=== PATIENT | male | born 1995 | race Caucasian/White ===

== ENCOUNTER 2017-01-19 21:08 | Emergency (ER) | payer SELFPAY ==
[2017-01-19 21:18] VITALS: BP 124/89
--- NOTE | 2017-01-19 21:18 | EDM.PDOC ---
ED HPI GENERAL MEDICAL PROBLEM - General Chief Complaint: General Stated Complaint: TOOTH PAIN Time Seen by Provider: 01/19/17 21:15 Source of Information: Reports: Patient History Limitations: Reports: No limitations - History of Present Illness INITIAL COMMENTS - FREE TEXT/NARRATIVE: History of present illness: [21-year-old male comes in complaining of acute dental pain. Patient indicates he thought he had a root canal but ignores it was never a crown and he is having debilitating pain from the left lower molar in the approximate 18/19 region.] Review of systems: As per history of present illness and below otherwise all systems reviewed and negative. Past medical history: As per history of present illness and as reviewed below otherwise noncontributory. Surgical history: As per history of present illness and as reviewed below otherwise noncontributory. Social history: No reported history of drug or alcohol abuse. Family history: As per history of present illness and as reviewed below otherwise noncontributory. Physical exam: HEENT: Atraumatic, normocephalic, pupils reactive, negative for conjunctival pallor or scleral icterus, mucous membranes moist, throat clear, neck supple, nontender, trachea midline. Lungs: Clear to auscultation, breath sounds equal bilaterally, chest nontender. Heart: S1S2, regular, negative for clicks, rubs, or JVD. Abdomen: Soft, nondistended, nontender. Negative for masses or hepatosplenomegaly. Negative for costovertebral tenderness. Pelvis: Stable nontender. Genitourinary: Deferred. Rectal: Deferred. Extremities: Atraumatic, negative for cords or calf pain. Neurovascular unremarkable. Neuro: Awake, alert, oriented. Cranial nerves II through XII unremarkable. Cerebellum unremarkable. Motor and sensory unremarkable throughout. Exam nonfocal. Patient appears to be in some amount of distress. There is no swelling of the jaw and patient is able to open mouth wide enough to see a back molar primarily absent and crumbled with what could have been a filling at one point but no sign of pulpectomy, canal filling and/or post or post-core buildup. In light of the current situation with the tooth it is doubtful that it had been a root canal but rather a significant orthodoxy that the patient confused for a repeat now. The patient might have been instructed he would need one in the future and/or was getting repair work in just short of a root canal. Diagnostics: [] Therapeutics: [Toradol 60 mg IM, dental balls] Impression: [Dental caries with significant distraction of the dense and] Plan: [Dental balls, antibiotics, preoperative pain medicine followup with dentist] Definitive disposition and diagnosis as appropriate pending reevaluation and review of above. - Related Data Allergies Allergy/AdvReac Type Severity Reaction Status Date / Time aspirin Allergy almost Verified 09/02/16 05:22 make him ? Home Meds: Home Meds Amoxicillin/Potassium Clav [Augmentin 875-125 Tablet] 1 each PO BID #20 tablet 01/19/17 [Rx] Past Medical History - Past Health History Medical/Surgical History: Denies Medical/Surgical History HEENT History: Reports: None Cardiovascular History: Reports: None Respiratory History: Reports: None Gastrointestinal History: Reports: None Genitourinary History: Reports: None Musculoskeletal History: Reports: None Neurological History: Reports: None Psychiatric History: Reports: None Endocrine/Metabolic History: Reports: None Hematologic History: Reports: Other (see below) 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 Dermatologic History: Reports: None - Infectious Disease History Infectious Disease History: Reports: None - Past Surgical History HEENT Surgical History: Reports: None Social & Family History - Family History Family Medical History: Noncontributory - Tobacco Use Smoking Status *Q: Current Every Day Smoker Years of Tobacco use: 7 Packs/Tins Daily: 0.5 Used Tobacco, but Quit: No Second Hand Smoke Exposure: Yes - Caffeine Use Caffeine Use: Reports: Soda - Alcohol Use Days Per Week of Alcohol Use: 0 - Recreational Drug Use Recreational Drug Use: No Drug Use in Last 12 Months: Yes Recreational Drug Type: Reports: Methamphetamine Recreational Drug Use Frequency: Weekly Recreational Drug Last Use: marijauna ED ROS GENERAL - Review of Systems Review Of Systems: See Below (See history of present illness) ED EXAM, GENERAL - Physical Exam Exam: See Below (The history of present illness) Course - Vital Signs Last Recorded V/S: Last Vital Signs Temp 36.4 C 01/19/17 21:11 Pulse 105 H 01/19/17 21:11 Resp 19 01/19/17 21:11 BP 124/89 01/19/17 21:11 Pulse Ox 99 01/19/17 21:11 - Orders/Labs/Meds Meds: Medications Discontinued Medications Generic Name Dose Route Start Last Admin Trade Name Malena PRN Reason Stop Dose Admin Benzocaine 2 each 01/19/17 21:27 Hurricaine One 20% MUCMEM 01/19/17 21:28 ONETIME ONE Ketorolac Tromethamine 60 mg 01/19/17 21:27 Toradol IM 01/19/17 21:28 ONETIME ONE Lidocaine HCl 15 ml 01/19/17 21:27 Xylocaine 2% Viscous PO 01/19/17 21:28 ONETIME ONE Departure - Departure Time of Disposition: 21:30 Disposition: Home, Self-Care 01 Condition: good Clinical Impression: Dental abscess Prescriptions: Amoxicillin/Potassium Clav [Augmentin 875-125 Tablet] 1 each PO BID #20 tablet Forms: ED Department Discharge Additional Instructions: The following information is given to patients seen in the emergency department who are being discharged to home. This information is to outline your options for follow-up care. We provide all patients seen in our emergency department with a follow-up referral. The need for follow-up, as well as the timing and circumstances, are variable depending upon the specifics of your emergency department visit. If you don't have a primary care physician on staff, we will provide you with a referral. We always advise you to contact your personal physician following an emergency department visit to inform them of the circumstance of the visit and for follow-up with them and/or the need for any referrals to a consulting specialist. The emergency department will also refer you to a specialist when appropriate. This referral assures that you have the opportunity for follow-up care with a specialist. All of these measure are taken in an effort to provide you with optimal care, which includes your follow-up. Under all circumstances we always encourage you to contact your private physician who remains a resource for coordinating your care. When calling for follow-up care, please make the office aware that this follow-up is from your recent emergency room visit. If for any reason you are refused follow-up, please contact the [facility] Emergency Department at and asked to speak to the emergency department charge nurse. Take medication as directed Attempt to get into a dentist [place] Return to ED as needed as discussed
[2017-01-19] MEDS ORDERED: Lidocaine 2% Viscous Solution 15 ML Cup PO ONE (21:27)
[2017-01-19] MEDS ORDERED: Ketorolac 60 MG/2 ML SDV IM ONE (21:27)
[2017-01-19] MEDS ORDERED: Benzocaine 20% Topical Spray UD MUCMEM ONE (21:27)
== END 2017-01-19 22:08 | disposition home or self-care (01) ==
LOC: MW.ED 21:08
DX: K04.7 Periapical abscess without sinus (principal); F17.210 Nicotine dependence, cigarettes, uncomplicated; Z88.8 Allergy status to other drugs, medicaments and biological substances
CPT/HCPCS: 96372; 99282; A9270; J1885; 99283

== ENCOUNTER 2017-09-02 20:58 | Emergency (ER) | payer SELFPAY ==
[2017-09-02 21:33] VITALS: BP 134/83
[2017-09-02] MEDS ORDERED: Diphtheria,Pertussis(Acell),Tetanus Vaccine 0.5 ML Syringe IM ONE (21:48)
--- NOTE | 2017-09-02 21:51 | EDM.PDOC ---
ED HPI GENERAL MEDICAL PROBLEM - General Chief Complaint: Skin Complaint Stated Complaint: ABCESS RT ARM Time Seen by Provider: 09/02/17 21:42 - History of Present Illness INITIAL COMMENTS - FREE TEXT/NARRATIVE: HISTORY AND PHYSICAL: History of present illness: The patient is a 21-year-old male with no stated medical problems who has a known history of IV meth use and used several days ago in his left forearm and believes he might have missed the vein and immediately a small blistery like area surface on the skin. Since that time there has been a circular dime-sized area of swelling and rubbery-like texture has been there and he is concerned because he's never had this before. He has no forearm swelling no systemic complaints of fever chills chest pain or shortness of breath and no neurosensory changes or weakness in his distal us or hand. He is right-hand dominant. He is unsure of his last tetanus shot Review of systems: As per history of present illness and below otherwise all systems reviewed and negative. Past medical history: As per history of present illness and as reviewed below otherwise noncontributory. Surgical history: As per history of present illness and as reviewed below otherwise noncontributory. Social history: No reported history of drug or alcohol abuse. Family history: As per history of present illness and as reviewed below otherwise noncontributory. Physical exam: Gen.: Well-developed well-nourished man who is nontoxic and vital signs of note by me HEENT: Atraumatic, normocephalic, negative for conjunctival pallor or scleral icterus, mucous membranes moist, throat clear, neck supple, nontender, trachea midline. Lungs: Clear to auscultation, breath sounds equal bilaterally, chest nontender. Heart: S1S2, regular rate and rhythm no overt murmurs Abdomen: Soft, nondistended, nontender. NABS Pelvis: Deferred Genitourinary: Deferred. Rectal: Deferred. Extremities: Atraumatic except right forearm please see skin exam, full range of motion without defects or deficits, negative for cords or calf pain. Neurovascular unremarkable. Neuro: Awake, alert, oriented. Cranial nerves II through XII unremarkable. Cerebellum unremarkable. Motor and sensory unremarkable throughout. Exam nonfocal. Skin: At the volar surface of the right forearm along the ulnar aspect approximately mid point there is a circular raised area which is rubbery and indurated in nature and mobile and there is a superficial clear scab-like area almost looking like a superficial burn at its surface. There is no surrounding erythema and there is no streaking up the arm. There is no axillary adenopathy appreciated and is no discrete tenderness or fluctuance to this area. Diagnostics: X-ray right forearm Therapeutics: Tdap I discussed this case and the findings with the patient. At this point is very rubbery and is starting to show some sign of ecchymosis so this may have been a missed vein that is a small hematoma. We will place him on Bactrim and I've advised him that if it grows in size start streaking up his arm or he has any systemic complaints that he needs to return. I discussed with him I&D but I feel that at this time the yield will be very low due to the rubbery indurated nature of this. He states agreement with this care plan. I have strongly advised close follow-up and reasons to return to the ED Impression: Hematoma versus abscess right forearm status post IV drug use Definitive disposition and diagnosis as appropriate pending reevaluation and review of above. - Related Data Allergies Allergy/AdvReac Type Severity Reaction Status Date / Time aspirin Allergy almost Verified 09/02/17 21:33 make him ? Home Meds: Home Meds . [No Known Home Meds] 09/02/17 [History] Past Medical History - Past Health History Medical/Surgical History: Denies Medical/Surgical History HEENT History: Reports: None Cardiovascular History: Reports: None Other Cardiovascular History: Heart disease when he was a child "my heart doesnt pump the way that it should" Respiratory History: Reports: None Gastrointestinal History: Reports: None Genitourinary History: Reports: None Musculoskeletal History: Reports: None Neurological History: Reports: None Psychiatric History: Reports: None Endocrine/Metabolic History: Reports: None Hematologic History: Reports: Other (See Below) 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 Dermatologic History: Reports: None - Infectious Disease History Infectious Disease History: Reports: Chicken Pox - Past Surgical History HEENT Surgical History: Reports: None Social & Family History - Family History Family Medical History: Noncontributory - Tobacco Use Smoking Status *Q: Current Every Day Smoker Years of Tobacco use: 8 Packs/Tins Daily: 1 Used Tobacco, but Quit: No Second Hand Smoke Exposure: Yes - Caffeine Use Caffeine Use: Reports: Energy Drinks Other Caffeine Use: occ - Alcohol Use Days Per Week of Alcohol Use: 0 - Recreational Drug Use Recreational Drug Use: Yes Drug Use in Last 12 Months: Yes Recreational Drug Type: Reports: Marijuana/Hashish, Methamphetamine Recreational Drug Use Frequency: Weekly Recreational Drug Last Use: [facility] ED ROS GENERAL - Review of Systems Review Of Systems: ROS reveals no pertinent complaints other than HPI. ED EXAM, SKIN/RASH Exam: See Below (See dictation) Course - Vital Signs Last Recorded V/S: Last Vital Signs Temp 37.1 C 09/02/17 21:31 Pulse 114 H 09/02/17 21:31 Resp 12 09/02/17 21:31 BP 134/83 09/02/17 21:31 Pulse Ox 96 09/02/17 21:31 - Orders/Labs/Meds Orders: Active Orders 24 hr Category Date Time Status Vaccines to be Administered [RC] PER UNIT ROUTINE Care 09/02/17 21:48 Active Forearm 2V Rt [CR] Stat Exams 09/02/17 21:48 Taken Meds: Medications Discontinued Medications Generic Name Dose Route Start Last Admin Trade Name Freq PRN Reason Stop Dose Admin Diphtheria/Tetanus/Acell Pertussis 0.5 ml 09/02/17 21:48 Adacel IM 09/02/17 21:49 .ONCE ONE Departure - Departure Time of Disposition: 22:31 Disposition: Home, Self-Care 01 Condition: Good Clinical Impression: Hematoma Cellulitis Qualifiers: Site of cellulitis: extremity Site of cellulitis of extremity: upper extremity Laterality: right Qualified Code(s): L03.113 - Cellulitis of right upper limb - Discharge Information Referrals: PCP,None [Primary Care Provider] - Forms: ED Department Discharge Additional Instructions: The following information is given to patients seen in the emergency department who are being discharged to home. This information is to outline your options for follow-up care. We provide all patients seen in our emergency department with a follow-up referral. The need for follow-up, as well as the timing and circumstances, are variable depending upon the specifics of your emergency department visit. If you don't have a primary care physician on staff, we will provide you with a referral. We always advise you to contact your personal physician following an emergency department visit to inform them of the circumstance of the visit and for follow-up with them and/or the need for any referrals to a consulting specialist. The emergency department will also refer you to a specialist when appropriate. This referral assures that you have the opportunity for followup care with a specialist. All of these measure are taken in an effort to provide you with optimal care, which includes your followup. Under all circumstances we always encourage you to contact your private physician who remains a resource for coordinating your care. When calling for followup care, please make the office aware that this follow-up is from your recent emergency room visit. If for any reason you are refused follow-up, please contact the [facility] emergency department at and ask to speak to the emergency department charge nurse. [facility] Primary care- Internal Medicine and Family [address] [id number] Please take antibiotics as you have been prescribed via [facility], Bactrim. Ice or heat to area for comfort and elevate. Please do not manipulate the area and please return to ER as needed and as discussed but especially if the area of redness expands, streaking occurs appear arm or the area comes to a head that can be drained. Please call and follow-up with our clinic next 1-2 days. - My Orders Last 24 Hours: My Active Orders 09/02/17 21:48 Vaccines to be Administered [RC] PER UNIT ROUTINE Forearm 2V Rt [CR] Stat - Assessment/Plan Last 24 Hours: My Active Orders 09/02/17 21:48 Vaccines to be Administered [RC] PER UNIT ROUTINE Forearm 2V Rt [CR] Stat
--- NOTE | 2017-09-03 10:01 | CR ---
EXAM DATE: 09/02/17 PATIENT'S AGE: 21 Patient: PATY CARO Facility: [place], [place] Site . Site : 1995 Study: XRay Extremity [id number] 10:14:19 PM Ordering Physician: Adolfo Sheppard Final Report: INDICATION: Abscess to medial forearm from iv drug. Pain and swelling to area. TECHNIQUE: Forearm radiograph 2 views right COMPARISON: 09/02/2016 FINDINGS: Bones: Alignment is normal. No acute fractures or aggressive bone lesions identified. Joint spaces: The radiocarpal joint and carpal rows are unremarkable. The elbow joint is not profiled. If there is pain or tenderness surrounding the elbow, dedicated views of the elbow are recommended. Soft tissues: Unremarkable. No radiopaque foreign bodies are seen. IMPRESSION: 1. No acute osseous injuries are noted. Dictated by: Yobani Wright MD @ 09/02/2017 22:18:32 (Electronic Signature) Report Signed by Proxy. PA
== END 2017-09-02 23:00 | disposition home or self-care (01) ==
LOC: MW.ED 20:58
DX: S50.11XA Contusion of right forearm, initial encounter (principal); L03.113 Cellulitis of right upper limb; F17.210 Nicotine dependence, cigarettes, uncomplicated; X58.XXXA Exposure to other specified factors, initial encounter; Z23 Encounter for immunization
CPT/HCPCS: 73090-26-RT; 73090-RT; 90471; 90715; 99283-25; 99284

== ENCOUNTER 2018-02-20 18:20 | Emergency (ER) | payer SELFPAY ==
[2018-02-20 18:44] VITALS: BP 102/65
--- NOTE | 2018-02-20 18:47 | EDM.PDOC ---
ED HPI GENERAL MEDICAL PROBLEM - General Chief Complaint: General Stated Complaint: MEDICAL CLEARANCE Time Seen by Provider: 02/20/18 18:28 Source of Information: Reports: Patient, Police History Limitations: Reports: No Limitations - History of Present Illness INITIAL COMMENTS - FREE TEXT/NARRATIVE: HISTORY AND PHYSICAL: History of present illness: Patient is a 22-year-old male who presents to the emergency room today with enforcement for medical clearance. Patient states he ran away from the police and "I'm exhausted" from running, trying to "get away". He denies any recent alcohol or drug use/abuse. Although police officers state he is being incarated for meth and marijuana use. Patient denies any fever, chills, chest pain, shortness of breath. He denies any abdominal pain, nausea, vomiting, diarrhea or constipation. He states "I'm fine, I just want out of here". Offers no current other systemic complaints. Review of systems: As per history of present illness and below otherwise all systems reviewed and negative. Past medical history: As per history of present illness and as reviewed below otherwise noncontributory. Surgical history: As per history of present illness and as reviewed below otherwise noncontributory. Social history: No reported history of drug or alcohol abuse. Family history: As per history of present illness and as reviewed below otherwise noncontributory. Physical exam: General: Nontoxic-appearing 22-year-old male. Alert and oriented. Flat affect. Appears in no acute distress. HEENT: Atraumatic, normocephalic, pupils equal and reactive bilaterally, negative for conjunctival pallor or scleral icterus, mucous membranes moist, throat clear, neck supple, nontender, trachea midline. No drooling or trismus noted. No meningeal signs Lungs: Clear to auscultation, breath sounds equal bilaterally, chest nontender. Heart: S1S2, tachycardic without overt murmur Abdomen: Soft, nondistended, nontender. Negative for masses or hepatosplenomegaly. Negative for costovertebral tenderness. Pelvis: Stable nontender. Genitourinary: Deferred. Rectal: Deferred. Skin: Intact, warm, dry. No lesions or rashes noted. Extremities: Atraumatic, negative for cords or calf pain. Neurovascular unremarkable. Neuro: Awake, alert, oriented. Cranial nerves II through XII unremarkable. Cerebellum unremarkable. Motor and sensory unremarkable throughout. Exam nonfocal. Notes: Patient declines any further evaluation at this time. Patient will be released to custody of law enforcement. Diagnostics: Declined Therapeutics: [] Impression: Screening for Medical Clearance Plan: Please follow-up with your primary caregiver in the next 1-2 days. Return to the ED as needed and as discussed. Definitive disposition and diagnosis as appropriate pending reevaluation and review of above. Bilateral Wrist Pain Score (Numeric/FACES): 5 - Related Data Allergies Allergy/AdvReac Type Severity Reaction Status Date / Time aspirin Allergy almost Verified 02/20/18 18:44 make him ? Home Meds: Home Meds . [No Known Home Meds] 09/02/17 [History] Past Medical History - Past Health History Medical/Surgical History: Denies Medical/Surgical History HEENT History: Reports: None Cardiovascular History: Reports: None Other Cardiovascular History: Heart disease when he was a child "my heart doesnt pump the way that it should" Respiratory History: Reports: None Gastrointestinal History: Reports: None Genitourinary History: Reports: None Musculoskeletal History: Reports: None Neurological History: Reports: None Psychiatric History: Reports: None Endocrine/Metabolic History: Reports: None Hematologic History: Reports: Other (See Below) 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 Dermatologic History: Reports: None - Infectious Disease History Infectious Disease History: Reports: Chicken Pox - Past Surgical History HEENT Surgical History: Reports: None Social & Family History - Family History Family Medical History: Noncontributory - Caffeine Use Caffeine Use: Reports: Energy Drinks Other Caffeine Use: occ ED ROS GENERAL - Review of Systems Review Of Systems: ROS reveals no pertinent complaints other than HPI. ED EXAM, GENERAL - Physical Exam Exam: See Below (See dictation) Course - Vital Signs Last Recorded V/S: Last Vital Signs Temp 97.9 F 02/20/18 18:41 Pulse 122 H 02/20/18 19:23 Resp 16 02/20/18 19:23 BP 102/65 02/20/18 18:41 Pulse Ox 98 02/20/18 19:23 Departure - Departure Time of Disposition: 18:58 Disposition: Home, Self-Care 01 Clinical Impression: Medical clearance for incarceration - Discharge Information Instructions: Medical Screening Exam Referrals: PCP,None [Primary Care Provider] - Forms: ED Department Discharge Additional Instructions: The following information is given to patients seen in the emergency department who are being discharged to home. This information is to outline your options for follow-up care. We provide all patients seen in our emergency department with a follow-up referral. The need for follow-up, as well as the timing and circumstances, are variable depending upon the specifics of your emergency department visit. If you don't have a primary care physician on staff, we will provide you with a referral. We always advise you to contact your personal physician following an emergency department visit to inform them of the circumstance of the visit and for follow-up with them and/or the need for any referrals to a consulting specialist. The emergency department will also refer you to a specialist when appropriate. This referral assures that you have the opportunity for follow-up care with a specialist. All of these measure are taken in an effort to provide you with optimal care, which includes your follow-up. Under all circumstances we always encourage you to contact your private physician who remains a resource for coordinating your care. When calling for follow-up care, please make the office aware that this follow-up is from your recent emergency room visit. If for any reason you are refused follow-up, please contact the [facility] Emergency Department at and asked to speak to the emergency department charge nurse. [facility] Primary Care [address] [place] [id number] Please follow-up with your primary caregiver in the next 1-2 days. Return to the ED as needed and as discussed.
== END 2018-02-20 19:18 | disposition home or self-care (01) ==
LOC: MW.ED 18:20
DX: Z02.89 Encounter for other administrative examinations (principal)
CPT/HCPCS: 99282

== ENCOUNTER 2018-05-13 18:28 | Emergency (ER) | payer SELFPAY ==
[2018-05-13 18:39] VITALS: BP 114/81
[2018-05-13] MEDS ORDERED: Acetaminophen 500 MG Tab PO ONE (19:03)
--- NOTE | 2018-05-13 19:24 | EDM.PDOC ---
ED HPI GENERAL MEDICAL PROBLEM - General Chief Complaint: Fever Stated Complaint: FEVER,BODY ACHES Time Seen by Provider: 05/13/18 18:59 - History of Present Illness INITIAL COMMENTS - FREE TEXT/NARRATIVE: HISTORY AND PHYSICAL: History of present illness: Patient history 22-year-old white male with history of methamphetamine abuse who presents with a concern of sore throat and fever he had no vomiting no diarrhea he's had low-grade tactile fever. No chest pain shortness of breath abdominal pain diarrhea or other complaints Review of systems: As per history of present illness and below otherwise all systems reviewed and negative. Past medical history: As per history of present illness and as reviewed below otherwise noncontributory. Surgical history: As per history of present illness and as reviewed below otherwise noncontributory. Social history: No reported history of drug or alcohol abuse. Family history: As per history of present illness and as reviewed below otherwise noncontributory. Physical exam: HEENT: Atraumatic, normocephalic, pupils reactive, negative for conjunctival pallor or scleral icterus, mucous membranes moist, throat injected scant exudates no peritonsillar fullness uvular deviation or hot potato voice, neck supple, nontender, trachea midline. Lungs: Clear to auscultation, breath sounds equal bilaterally, chest nontender. Heart: S1S2, regular, negative for clicks, rubs, or JVD. Abdomen: Soft, nondistended, nontender. Negative for masses or hepatosplenomegaly. Negative for costovertebral tenderness. Pelvis: Stable nontender. Genitourinary: Deferred. Rectal: Deferred. Extremities: Atraumatic, negative for cords or calf pain. Neurovascular unremarkable. Neuro: Awake, alert, oriented. Cranial nerves II through XII unremarkable. Cerebellum unremarkable. Motor and sensory unremarkable throughout. Exam nonfocal. Diagnostics: Deferred Therapeutics: Tylenol 1 g Impression: 1 exudative pharyngitis #2 history of methamphetamine abuse Definitive disposition and diagnosis as appropriate pending reevaluation and review of above. bodyaches Pain Score (Numeric/FACES): 8 - Related Data Allergies Allergy/AdvReac Type Severity Reaction Status Date / Time aspirin Allergy almost Verified 05/13/18 18:36 make him ? Home Meds: Home Meds . [No Known Home Meds] 09/02/17 [History] Past Medical History - Past Health History Medical/Surgical History: Denies Medical/Surgical History HEENT History: Reports: None Cardiovascular History: Reports: None Other Cardiovascular History: Heart disease when he was a child "my heart doesnt pump the way that it should" Respiratory History: Reports: None Gastrointestinal History: Reports: None Genitourinary History: Reports: None Musculoskeletal History: Reports: None Neurological History: Reports: None Psychiatric History: Reports: None Endocrine/Metabolic History: Reports: None Hematologic History: Reports: Other (See Below) 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 Immunologic History: Reports: None Oncologic (Cancer) History: Reports: None Dermatologic History: Reports: None - Infectious Disease History Infectious Disease History: Reports: Other (See Below) Other Infectious Disease History: hx of staph - Past Surgical History Head Surgeries/Procedures: Reports: None HEENT Surgical History: Reports: None GI Surgical History: Reports: None Male Surgical History: Reports: None Endocrine Surgical History: Reports: None Neurological Surgical History: Reports: None Oncologic Surgical History: Reports: None Dermatological Surgical History: Reports: None Social & Family History - Family History Family Medical History: Noncontributory - Tobacco Use Smoking Status *Q: Current Every Day Smoker Years of Tobacco use: 8 Packs/Tins Daily: 0.5 - Caffeine Use Caffeine Use: Reports: Tea Other Caffeine Use: occ - Recreational Drug Use Recreational Drug Use: Yes Recreational Drug Type: Reports: Marijuana/Hashish, Methamphetamine Recreational Drug Use Frequency: Daily ED ROS GENERAL - Review of Systems Review Of Systems: ROS reveals no pertinent complaints other than HPI. ED EXAM, GENERAL - Physical Exam Exam: See Below (See dictation) Course - Vital Signs Last Recorded V/S: Last Vital Signs Temp 38.9 C H 05/13/18 19:12 Pulse 119 H 05/13/18 18:37 Resp 18 05/13/18 18:37 BP 114/81 05/13/18 18:37 Pulse Ox 98 05/13/18 18:37 - Orders/Labs/Meds Meds: Medications Discontinued Medications Generic Name Dose Route Start Last Admin Trade Name Freq PRN Reason Stop Dose Admin Acetaminophen 1,000 mg 05/13/18 19:03 05/13/18 19:12 Tylenol Extra Strength PO 05/13/18 19:04 1,000 mg ONETIME ONE Administration Departure - Departure Time of Disposition: 19:26 Disposition: Home, Self-Care 01 Preliminary Cause of *Q: Sepsis & Multi System Organ Failure Clinical Impression: Exudative pharyngitis - Discharge Information *PRESCRIPTION DRUG MONITORING PROGRAM REVIEWED*: Not Applicable *COPY OF PRESCRIPTION DRUG MONITORING REPORT IN PATIENT IGOR: Not Applicable Referrals: PCP,None [Primary Care Provider] - Additional Instructions: The following information is given to patients seen in the emergency department who are being discharged to home. This information is to outline your options for follow-up care. We provide all patients seen in our emergency department with a follow-up referral. The need for follow-up, as well as the timing and circumstances, are variable depending upon the specifics of your emergency department visit. If you don't have a primary care physician on staff, we will provide you with a referral. We always advise you to contact your personal physician following an emergency department visit to inform them of the circumstance of the visit and for follow-up with them and/or the need for any referrals to a consulting specialist. The emergency department will also refer you to a specialist when appropriate. This referral assures that you have the opportunity for followup care with a specialist. All of these measure are taken in an effort to provide you with optimal care, which includes your followup. Under all circumstances we always encourage you to contact your private physician who remains a resource for coordinating your care. When calling for followup care, please make the office aware that this follow-up is from your recent emergency room visit. If for any reason you are refused follow-up, please contact the [facility] emergency department at and asked to speak to the emergency department charge nurse. Augmentin as prescribed Motrin/Tylenol as directed follow-up primary medical doctor and/or clinic above as discussed return as needed as discussed
== END 2018-05-13 20:05 | disposition home or self-care (01) ==
LOC: MW.ED 18:28
DX: J02.9 Acute pharyngitis, unspecified (principal); F15.11 Other stimulant abuse, in remission; F17.210 Nicotine dependence, cigarettes, uncomplicated
CPT/HCPCS: 99283; A9270

== ENCOUNTER 2018-05-14 21:41 | Emergency (ER) | payer SELFPAY ==
[2018-05-14] MEDS ORDERED: Sodium Chloride 0.9% 1,000 ML IV ONE (21:44)
--- NOTE | 2018-05-14 21:55 | EDM.PDOC ---
ED HPI GENERAL MEDICAL PROBLEM - General Chief Complaint: General Stated Complaint: CAN'T EAT OR SLEEP Time Seen by Provider: 05/14/18 21:43 - History of Present Illness INITIAL COMMENTS - FREE TEXT/NARRATIVE: HISTORY AND PHYSICAL: History of present illness: Patient's a 22-year-old white male with history of polysubstance abuse including methamphetamine who was seen yesterday by myself with pharyngitis and put on Augmentin and returns now with inability to eat or sleep he has been taking his medicine states last use any illicit drugs was greater than 48 hours. He denies chest pain shortness of breath abdominal pain vomiting diarrhea or other concern Review of systems: As per history of present illness and below otherwise all systems reviewed and negative. Past medical history: As per history of present illness and as reviewed below otherwise noncontributory. Surgical history: As per history of present illness and as reviewed below otherwise noncontributory. Social history: No reported history of drug or alcohol abuse. Family history: As per history of present illness and as reviewed below otherwise noncontributory. Physical exam: HEENT: Atraumatic, normocephalic, pupils reactive, negative for conjunctival pallor or scleral icterus, mucous membranes slightly dry without peritonsillar fullness uvular deviation trismus or hot potato voiceneck supple, nontender, trachea midline. Lungs: Clear to auscultation, breath sounds equal bilaterally, chest nontender. Heart: S1S2, regular, negative for clicks, rubs, or JVD. Abdomen: Soft, nondistended, nontender. Negative for masses or hepatosplenomegaly. Negative for costovertebral tenderness. Pelvis: Stable nontender. Genitourinary: Deferred. Rectal: Deferred. Extremities: Atraumatic, negative for cords or calf pain. Neurovascular unremarkable. Neuro: Awake, alert, oriented. Cranial nerves II through XII unremarkable. Cerebellum unremarkable. Motor and sensory unremarkable throughout. Exam nonfocal. Diagnostics: CBC CMP UA UDS blood culture 2 lactic acid chest x-ray Therapeutics: Saline 1 L bolus Impression: #1 pharyngitis #2 history of polysubstance abuse #3 dehydration Definitive disposition and diagnosis as appropriate pending reevaluation and review of above. - Related Data Allergies Allergy/AdvReac Type Severity Reaction Status Date / Time aspirin Allergy almost Verified 05/13/18 18:36 make him ? Home Meds: Home Meds . [No Known Home Meds] 09/02/17 [History] Past Medical History - Past Health History Medical/Surgical History: Denies Medical/Surgical History HEENT History: Reports: None Cardiovascular History: Reports: None Other Cardiovascular History: Heart disease when he was a child "my heart doesnt pump the way that it should" Respiratory History: Reports: None Gastrointestinal History: Reports: None Genitourinary History: Reports: None Musculoskeletal History: Reports: None Neurological History: Reports: None Psychiatric History: Reports: None Endocrine/Metabolic History: Reports: None Hematologic History: Reports: Other (See Below) 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 Immunologic History: Reports: None Oncologic (Cancer) History: Reports: None Dermatologic History: Reports: None - Infectious Disease History Infectious Disease History: Reports: Other (See Below) Other Infectious Disease History: hx of staph - Past Surgical History Head Surgeries/Procedures: Reports: None HEENT Surgical History: Reports: None GI Surgical History: Reports: None Male Surgical History: Reports: None Endocrine Surgical History: Reports: None Neurological Surgical History: Reports: None Oncologic Surgical History: Reports: None Dermatological Surgical History: Reports: None Social & Family History - Family History Family Medical History: Noncontributory - Tobacco Use Smoking Status *Q: Current Every Day Smoker Years of Tobacco use: 8 Packs/Tins Daily: 1 - Caffeine Use Caffeine Use: Reports: Tea Other Caffeine Use: occ - Recreational Drug Use Recreational Drug Use: Yes Drug Use in Last 12 Months: Yes Recreational Drug Type: Reports: Marijuana/Hashish, Methamphetamine ED ROS GENERAL - Review of Systems Review Of Systems: ROS reveals no pertinent complaints other than HPI. ED EXAM, GENERAL - Physical Exam Exam: See Below (See dictation) Course - Vital Signs Last Recorded V/S: Last Vital Signs Temp 38.1 C 05/14/18 21:55 Pulse 116 H 05/14/18 21:55 Resp 16 05/14/18 21:55 BP 128/82 05/14/18 21:55 Pulse Ox 97 05/14/18 21:55 - Orders/Labs/Meds Orders: Active Orders 24 hr Category Date Time Status Chest 2V [CR] Stat Exams 05/14/18 21:44 Taken CULTURE BLOOD [BC] Stat Lab 05/14/18 21:58 Received CULTURE BLOOD [BC] Stat Lab 05/14/18 22:15 Received DRUG SCREEN, URINE [URCHEM] Stat Lab 05/14/18 22:48 Ordered UA W/MICROSCOPIC [URIN] Stat Lab 05/14/18 22:48 Ordered Blood Culture x2 Reflex Set [OM.PC] Stat Oth 05/14/18 21:44 Ordered Labs: Laboratory Tests 05/14/18 05/14/18 05/14/18 Range/Units 22:03 22:15 22:15 WBC 9.23 (4.0-11.0) K/uL RBC 4.94 (4.50-5.90) M/uL Hgb 14.4 (13.0-17.0) g/dL Hct 42.0 (38.0-50.0) % MCV 85.0 (80.0-98.0) fL MCH 29.1 (27.0-32.0) pg MCHC 34.3 (31.0-37.0) g/dL RDW Std Deviation 40.1 (28.0-62.0) fl RDW Coeff of Ranjit 13 (11.0-15.0) % Plt Count 185 (150-400) K/uL MPV 10.00 (7.40-12.00) fL Neut % (Auto) 73.7 (48.0-80.0) % Lymph % (Auto) 14.7 L (16.0-40.0) % Rosebud % (Auto) 11.1 (0.0-15.0) % Eos % (Auto) 0.3 (0.0-7.0) % Baso % (Auto) 0.2 (0.0-1.5) % Neut # (Auto) 6.8 H (1.4-5.7) K/uL Lymph # (Auto) 1.4 (0.6-2.4) K/uL Rosebud # (Auto) 1.0 H (0.0-0.8) K/uL Eos # (Auto) 0.0 (0.0-0.7) K/uL Baso # (Auto) 0.0 (0.0-0.1) K/uL Nucleated RBC % 0.0 /100WBC Nucleated RBCs # 0 K/uL INR 1.07 Lactate (0.20-2.00) mmol/L Sodium 134 L (136-148) mmol/L Potassium 3.8 (3.5-5.1) mmol/L Chloride 101 (98-107) mmol/L Carbon Dioxide 27.1 (21.0-32.0) mmol/L BUN 11 (7.0-18.0) mg/dL Creatinine 1.0 (0.8-1.3) mg/dL Est Cr Clr Drug Dosing 118.94 mL/min Estimated GFR (MDRD) > 60.0 ml/min Glucose 93 (74-106) mg/dL Calcium 8.9 (8.5-10.1) mg/dL Total Bilirubin 0.2 (0.2-1.0) mg/dL AST 14 L (15-37) IU/L ALT 20 (14-63) IU/L Alkaline Phosphatase 63 (46-116) U/L Total Protein 7.2 (6.4-8.2) g/dL Albumin 3.5 (3.4-5.0) g/dL Globulin 3.7 H (2.0-3.5) g/dL Albumin/Globulin Ratio 1.0 L (1.3-2.8) Ethyl Alcohol < 3.0 mg/dL 05/14/18 Range/Units 22:15 WBC (4.0-11.0) K/uL RBC (4.50-5.90) M/uL Hgb (13.0-17.0) g/dL Hct (38.0-50.0) % MCV (80.0-98.0) fL MCH (27.0-32.0) pg MCHC (31.0-37.0) g/dL RDW Std Deviation (28.0-62.0) fl RDW Coeff of Ranjit (11.0-15.0) % Plt Count (150-400) K/uL MPV (7.40-12.00) fL Neut % (Auto) (48.0-80.0) % Lymph % (Auto) (16.0-40.0) % Rosebud % (Auto) (0.0-15.0) % Eos % (Auto) (0.0-7.0) % Baso % (Auto) (0.0-1.5) % Neut # (Auto) (1.4-5.7) K/uL Lymph # (Auto) (0.6-2.4) K/uL Rosebud # (Auto) (0.0-0.8) K/uL Eos # (Auto) (0.0-0.7) K/uL Baso # (Auto) (0.0-0.1) K/uL Nucleated RBC % /100WBC Nucleated RBCs # K/uL INR Lactate 0.8 (0.20-2.00) mmol/L Sodium (136-148) mmol/L Potassium (3.5-5.1) mmol/L Chloride (98-107) mmol/L Carbon Dioxide (21.0-32.0) mmol/L BUN (7.0-18.0) mg/dL Creatinine (0.8-1.3) mg/dL Est Cr Clr Drug Dosing mL/min Estimated GFR (MDRD) ml/min Glucose (74-106) mg/dL Calcium (8.5-10.1) mg/dL Total Bilirubin (0.2-1.0) mg/dL AST (15-37) IU/L ALT (14-63) IU/L Alkaline Phosphatase (46-116) U/L Total Protein (6.4-8.2) g/dL Albumin (3.4-5.0) g/dL Globulin (2.0-3.5) g/dL Albumin/Globulin Ratio (1.3-2.8) Ethyl Alcohol mg/dL Meds: Medications Discontinued Medications Generic Name Dose Route Start Last Admin Trade Name Freq PRN Reason Stop Dose Admin Sodium Chloride 1,000 mls @ 999 mls/hr 05/14/18 21:44 05/14/18 22:16 Normal Saline IV 05/14/18 22:44 999 mls/hr STAT ONE Administration Departure - Departure Time of Disposition: 22:58 Disposition: Home, Self-Care 01 Condition: Good Clinical Impression: Pharyngitis, Polysubstance abuse, Dehydration - Discharge Information *PRESCRIPTION DRUG MONITORING PROGRAM REVIEWED*: Not Applicable *COPY OF PRESCRIPTION DRUG MONITORING REPORT IN PATIENT IGOR: Not Applicable Forms: ED Department Discharge Additional Instructions: The following information is given to patients seen in the emergency department who are being discharged to home. This information is to outline your options for follow-up care. We provide all patients seen in our emergency department with a follow-up referral. The need for follow-up, as well as the timing and circumstances, are variable depending upon the specifics of your emergency department visit. If you don't have a primary care physician on staff, we will provide you with a referral. We always advise you to contact your personal physician following an emergency department visit to inform them of the circumstance of the visit and for follow-up with them and/or the need for any referrals to a consulting specialist. The emergency department will also refer you to a specialist when appropriate. This referral assures that you have the opportunity for followup care with a specialist. All of these measure are taken in an effort to provide you with optimal care, which includes your followup. Under all circumstances we always encourage you to contact your private physician who remains a resource for coordinating your care. When calling for followup care, please make the office aware that this follow-up is from your recent emergency room visit. If for any reason you are refused follow-up, please contact the [facility] emergency department at and asked to speak to the emergency department charge nurse. [facility] [address] [place] [id number] Antibiotics as prescribed push fluids stop using drugs follow-up primary care above as needed as discussed and return as needed as discussed - My Orders Last 24 Hours: My Active Orders 05/14/18 21:44 Chest 2V [CR] Stat Blood Culture x2 Reflex Set [OM.PC] Stat 05/14/18 21:58 CULTURE BLOOD [BC] Stat 05/14/18 22:15 CULTURE BLOOD [BC] Stat 05/14/18 22:48 DRUG SCREEN, URINE [URCHEM] Stat UA W/MICROSCOPIC [URIN] Stat - Assessment/Plan Last 24 Hours: My Active Orders 05/14/18 21:44 Chest 2V [CR] Stat Blood Culture x2 Reflex Set [OM.PC] Stat 05/14/18 21:58 CULTURE BLOOD [BC] Stat 05/14/18 22:15 CULTURE BLOOD [BC] Stat 05/14/18 22:48 DRUG SCREEN, URINE [URCHEM] Stat UA W/MICROSCOPIC [URIN] Stat
[2018-05-14 22:47] LABS: CHLORIDE,CL 101 mmol/L (98-107); SODIUM,NA 134 mmol/L (136-148)
[2018-05-14 23:16] VITALS: BP 121/72
--- NOTE | 2018-05-15 09:00 | CR ---
EXAM DATE: 05/14/18 PATIENT'S AGE: 22 Patient: PATY CARO Facility: [place], [place] Site . Site : 1995 Study: XRay Chest [id number]/[id number] 10:48:44 PM Ordering Physician: Sandy Echavarria Final Report: INDICATION: Weakness, dysphagia. TECHNIQUE: Chest radiograph 2 views COMPARISON: 05/18/2014 FINDINGS: Mediastinum: The mediastinum is normal in appearance. The heart silhouette is normal in size and morphology. Lung: A stable small nodular density measuring 6 mm is seen in zone. No sign of pleural effusion seen. No pneumothorax is identified. Musculoskeletal: Mild dextroscoliosis of the thoracic spine is noted. IMPRESSION: 1. No acute cardiopulmonary disease is seen. Dictated by Yobani Wright MD @ 05/14/2018 10:55:25 PM Dictated by: Yobani Wright MD @ 05/14/2018 22:55:28 (Electronic Signature) Report Signed by Proxy. PA
== END 2018-05-14 23:13 | disposition home or self-care (01) ==
LOC: MW.ED 21:41
DX: E86.0 Dehydration (principal); J02.9 Acute pharyngitis, unspecified; F19.10 Other psychoactive substance abuse, uncomplicated; Z88.8 Allergy status to other drugs, medicaments and biological substances; F17.210 Nicotine dependence, cigarettes, uncomplicated
CPT/HCPCS: 36415; 71046; 80053; 80305; 81001; 83605; 85025; 85610; 87040; 96360; 99285; G0480; J7040; 99283

== ENCOUNTER 2018-10-13 21:35 | Emergency (ER) | payer SELFPAY ==
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
[2018-10-13 22:53] LABS: CHLORIDE,CL 104 mmol/L (98-107); SODIUM,NA 138 mmol/L (136-148)
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
[2018-10-13 23:25] VITALS: BP 110/66
== END 2018-10-13 23:25 | disposition home or self-care (01) ==
LOC: MW.ED 21:35
DX: S09.90XA Unspecified injury of head, initial encounter (principal); S00.81XA Abrasion of other part of head, initial encounter; F17.210 Nicotine dependence, cigarettes, uncomplicated; Z88.8 Allergy status to other drugs, medicaments and biological substances; Y09 Assault by unspecified means
CPT/HCPCS: 36415; 70450; 70450-26; 80053; 85025; 85240; 85610; 85730; 99284-25

== ENCOUNTER 2020-01-30 21:31 | Emergency (ER) | payer SELFPAY ==
[2020-01-30 21:51] VITALS: PULSE 81
[2020-01-30] MEDS ORDERED: Azithromycin 250 MG Tab PO ONE (22:13)
[2020-01-30] MEDS ORDERED: cefTRIAXone 250 MG in Lidocaine 1% 1 ML IM ONE (22:13)
--- NOTE | 2020-01-30 22:26 | EDM.PDOC ---
ED HPI GENERAL MEDICAL PROBLEM - General Chief Complaint: Genitourinary Problem Stated Complaint: POSSIBLE STD Time Seen by Provider: 01/30/20 21:33 Source of Information: Reports: Patient History Limitations: Reports: No Limitations - History of Present Illness INITIAL COMMENTS - FREE TEXT/NARRATIVE: History of present illness: [Patient is a 24-year-old male who presents with possible STD. He states that he has had some burning with urination along with urethral discharge over the last day or 2. States that he got out of senior care about a month ago and has had sex with 2 different girls, both of whom are new partners. He denies chest pain , shortness of breath, fever, known COVID-19 exposure, or URI symptoms. Denies any lesions or rashes or other abnormalities involving his genital area. No ulcers.] Review of systems: As per history of present illness and below otherwise all systems reviewed and negative. Past medical history: As per history of present illness and as reviewed below otherwise noncontributory. Surgical history: As per history of present illness and as reviewed below otherwise noncontributory. Social history: No reported history of drug or alcohol abuse. Family history: As per history of present illness and as reviewed below otherwise noncontributory. Physical exam: General: Awake, alert, no acute distress, A&O X3. HEENT: Atraumatic, normocephalic, pupils reactive, negative for conjunctival pallor or scleral icterus, mucous membranes moist, throat clear, neck supple, nontender, trachea midline. Lungs: Clear to auscultation, breath sounds equal bilaterally, chest nontender. Heart: RRR, normal S1S2, no JVD. Abdomen: Soft, nondistended, nontender. Negative for masses or hepatosplenomegaly. Negative for costovertebral tenderness. Pelvis: Stable nontender. Genitourinary: Deferred. Rectal: Deferred. Extremities: Atraumatic, negative for cords or calf pain. Neurovascular unremarkable. Neuro: Awake, alert, oriented. Motor and sensory grossly intact throughout. Exam nonfocal. Diagnostics: [] Therapeutics: [] Impression: [] Plan: [] Definitive disposition and diagnosis as appropriate pending reevaluation and review of above. Penis Pain Score (Numeric/FACES): 6 - Related Data Allergies Allergy/AdvReac Type Severity Reaction Status Date / Time aspirin Allergy almost Verified 01/30/20 21:46 make him ? Home Meds: Home Meds . [No Known Home Meds] 09/02/17 [History] Past Medical History - Past Health History Medical/Surgical History: Denies Medical/Surgical History HEENT History: Reports: None Cardiovascular History: Reports: Other (See Below) Other Cardiovascular History: Heart disease when he was a child "my heart doesnt pump the way that it should" Respiratory History: Reports: None Gastrointestinal History: Reports: None Genitourinary History: Reports: None Musculoskeletal History: Reports: None Neurological History: Reports: None Psychiatric History: Reports: None Endocrine/Metabolic History: Reports: None Hematologic History: Reports: Other (See Below) Other Hematologic History: Von Willebrand Immunologic History: Reports: None Oncologic (Cancer) History: Reports: None Dermatologic History: Reports: None - Infectious Disease History Infectious Disease History: Reports: None Other Infectious Disease History: hx of staph - Past Surgical History Head Surgeries/Procedures: Reports: None HEENT Surgical History: Reports: None GI Surgical History: Reports: None Male Surgical History: Reports: None Endocrine Surgical History: Reports: None Neurological Surgical History: Reports: None Oncologic Surgical History: Reports: None Dermatological Surgical History: Reports: None Social & Family History - Family History Family Medical History: Noncontributory - Tobacco Use Smoking Status *Q: Current Every Day Smoker Years of Tobacco use: 7 Packs/Tins Daily: 1 - Caffeine Use Caffeine Use: Reports: None Other Caffeine Use: occ - Recreational Drug Use Recreational Drug Use: No ED ROS GENERAL - Review of Systems Review Of Systems: Comprehensive ROS is negative, except as noted in HPI. ED EXAM, GI/ABD - Physical Exam Exam: See Below (See H&P) Course - Vital Signs Text/Narrative:: Patient treated empirically for chlamydia and gonorrhea here in the ED. Urinalysis shows positive for WBCs. Chlamydia and gonorrhea testing is pending at this time. He received a azithromycin and Rocephin here. Stable vital signs. Otherwise nontoxic appearance. Return precautions provided. Last Recorded V/S: Last Vital Signs Temp 36.3 C 01/30/20 21:47 Pulse 81 01/30/20 23:15 Resp 14 01/30/20 23:15 BP 117/70 01/30/20 23:15 Pulse Ox 97 05/09/20 23:15 - Orders/Labs/Meds Orders: Active Orders 24 hr Category Date Time Status CHLAMYDIA AND GONORRHEA BY TMA Routine Lab 01/30/20 21:43 Received Labs: Laboratory Tests 01/30/20 Range/Units 21:43 Urine Color YELLOW Urine Appearance SLT CLOUDY Urine pH 6.0 (5.0-8.0) Ur Specific [place] >= 1.030 (1.001-1.035) Urine Protein NEGATIVE (NEGATIVE) mg/dL Urine Glucose (UA) NEGATIVE (NEGATIVE) mg/dL Urine Ketones NEGATIVE (NEGATIVE) mg/dL Urine Occult Blood SMALL H (NEGATIVE) Urine Nitrite NEGATIVE (NEGATIVE) Urine Bilirubin SMALL H (NEGATIVE) Urine Ictotest NEGATIVE Urine Urobilinogen 1.0 (<2.0) EU/dL Ur Leukocyte Esterase SMALL H (NEGATIVE) Urine RBC 1-4 (0-2/HPF) Urine WBC 50-60 (0-5/HPF) Ur Epithelial Cells RARE (NONE-FEW) Urine Bacteria FEW (NEGATIVE) Urine Mucus LIGHT (NONE-MOD) Meds: Medications Discontinued Medications Generic Name Dose Route Start Last Admin Trade Name Malena PRN Reason Stop Dose Admin Azithromycin 1,000 mg 01/30/20 22:13 01/30/20 22:58 Zithromax PO 01/30/20 22:14 1,000 mg Q24H ONE Administration Ceftriaxone Sodium Confirm 01/30/20 22:52 01/30/20 23:01 Rocephin Administered 01/30/20 22:53 Not Given Dose 250 mg .ROUTE .STK-MED ONE Ceftriaxone Sodium 250 mg/ 1 mls @ 1 mls/sec 01/30/20 22:13 01/30/20 22:59 Lidocaine HCl IM 01/30/20 22:14 1 mls/sec ONETIME ONE Administration Lidocaine HCl Confirm 01/30/20 22:53 01/30/20 23:01 Xylocaine-Mpf 1% Administered 01/30/20 22:54 Not Given Dose 2 mls @ as directed .ROUTE .STK-MED ONE Departure - Departure Time of Disposition: 22:25 Disposition: Home, Self-Care 01 Clinical Impression: STD exposure, Urethritis - Discharge Information Instructions: Sexually Transmitted Disease, [id number] Referrals: PCP,None [Primary Care Provider] - Forms: ED Department Discharge Additional Instructions: Follow-up with primary care doctor. Return to the ER with any new or worsening symptoms. The following information is given to patients seen in the emergency department who are being discharged to home. This information is to outline your options for follow-up care. We provide all patients seen in our emergency department with a follow-up referral. The need for follow-up, as well as the timing and circumstances, are variable depending upon the specifics of your emergency department visit. If you don't have a primary care physician on staff, we will provide you with a referral. We always advise you to contact your personal physician following an emergency department visit to inform them of the circumstance of the visit and for follow-up with them and/or the need for any referrals to a consulting specialist. The emergency department will also refer you to a specialist when appropriate. This referral assures that you have the opportunity for follow-up care with a specialist. All of these measure are taken in an effort to provide you with optimal care, which includes your follow-up. Under all circumstances we always encourage you to contact your private physician who remains a resource for coordinating your care. When calling for follow-up care, please make the office aware that this follow-up is from your recent emergency room visit. If for any reason you are refused follow-up, please contact the [facility] Emergency Department at and asked to speak to the emergency department charge nurse. Sepsis Event Note - Evaluation Sepsis Screening Result: No Definite Risk - Focused Exam Vital Signs: Vital Signs Temp Pulse Resp BP Pulse Ox 01/30/20 23:15 81 14 117/70 97 01/30/20 21:47 36.3 C 81 18 129/84 97 Date Exam was Performed: 01/31/20 Time Exam was Performed: 00:14 - My Orders Last 24 Hours: My Active Orders 01/30/20 21:43 CHLAMYDIA AND GONORRHEA BY TMA Routine - Assessment/Plan Last 24 Hours: My Active Orders 01/30/20 21:43 CHLAMYDIA AND GONORRHEA BY TMA Routine
[2020-01-30] MEDS ORDERED: cefTRIAXone 250 MG Vial ONE (22:52)
[2020-01-30] MEDS ORDERED: Lidocaine 1% 2 ML ONE (22:53)
[2020-01-30 23:25] VITALS: BP 117/70
== END 2020-01-30 23:15 | disposition home or self-care (01) ==
LOC: MW.ED 21:31
DX: N34.2 Other urethritis (principal); F17.210 Nicotine dependence, cigarettes, uncomplicated; Z20.2 Contact with and (suspected) exposure to infections with a predominantly sexual mode of transmission; Z88.6 Allergy status to analgesic agent
CPT/HCPCS: 81001; 87491; 87591; 96372; 99283; A9270; J0696; J2001; 99282

== ENCOUNTER 2020-06-15 10:56 | Emergency (ER) | payer SELFPAY ==
--- NOTE | 2020-06-15 11:28 | EDM.PDOC ---
ED HPI GENERAL MEDICAL PROBLEM - General Chief Complaint: Skin Complaint Stated Complaint: tattoo infection Time Seen by Provider: 06/15/20 11:05 Source of Information: Reports: Patient History Limitations: Reports: No Limitations - History of Present Illness INITIAL COMMENTS - FREE TEXT/NARRATIVE: HISTORY AND PHYSICAL: History of Present Illness: patient is a 24-year-old male who presents to the ED today with concern of a tattoo infection starting last night and worsened this morning when he woke up. Patient states that he had a tattoo done by a friend and not in a shop 3 days ago. Patient states that he did use clean needles that he is aware of but states he will started noticing redness of the tattoo area last night and worsening this morning. Patient states he is up-to-date on his tetanus and had this done 2 years ago. Patient denies fever, chills, chest pain, shortness of breath, or cough. Denies headache, neck stiff ness, change in vision, syncope, or near syncope. Denies nausea, vomiting, abdominal pain, diarrhea, constipation, or dysuria. Has not noted any blood in urine or stool. Patient has been eating and drinking appropriately. Review of systems: As per history of present illness and below otherwise all systems reviewed and negative. Past medical history: As per history of present illness and as reviewed below otherwise noncontributory. Surgical history: As per history of present illness and as reviewed below otherwise noncontributory. Social history: See social history for further information Family history: As per history of present illness and as reviewed below otherwise noncontributory. Physical exam: General: Patient is alert, oriented, and in no acute distress. Patient sitting comfortably on exam table. HEENT: Atraumatic, normocephalic, pupils equal and reactive bilaterally, negative for conjunctival pallor or scleral icterus, mucous membranes moist, TMs normal bilaterally, throat clear, neck supple, nontender, trachea midline. No drooling or trismus noted. No meningeal signs. No hot potato voice noted. Lungs: Clear to auscultation, breath sounds equal bilaterally, chest nontender. Heart: S1S2, regular rate and rhythm without overt murmur Abdomen: Soft, nondistended, nontender. Negative for masses or hepatosplenomegaly. Negative for costovertebral tenderness. Pelvis: Stable nontender. Genitourinary: Deferred. Rectal: Deferred. Skin: The left arm has a large tattoo encompassing the entire forearm. Although difficult to completely visualize due to large tattoo, there is an underlying cellulitis without evidence of abscess of majority of the tattoo without drainage/pus. Patient has full range of motion of the complete left upper extremity without pain or difficulty. Otherwise, intact, warm, dry. No lesions or rashes noted. Extremities: Atraumatic, negative for cords or calf pain. Neurovascular unremarkable. Neuro: Awake, alert, oriented. Cranial nerves II through XII unremarkable. Cerebellum unremarkable. Motor and sensory unremarkable throughout. Exam nonfocal. Notes: Signs and symptoms that would prompt return to the ED thoroughly discussed with patient. Discussed importance for monitoring for signs of improving versus worsening infection. Discussed importance for follow-up with her primary care provider. Voices understanding and is agreeable to plan of care. Denies any further q uestions or concerns at this time. Diagnostics: XR offered but patient declines Therapeutics: None Prescription: Keflex, Bactrim DS Impression: Cellulitis, left upper extremity Plan: 1. Take medication as prescribed. Continue to monitor for signs of spreading infection versus improvement as discussed. 2. Follow-up with your primary care provider as discussed. Return to the ED as needed and as discussed. Definitive disposition and diagnosis as appropriate pending reevaluation and review of above. - Related Data Allergies Allergy/AdvReac Type Severity Reaction Status Date / Time aspirin Allergy almost Verified 01/30/20 21:46 make him ? Home Meds: Home Meds Sulfamethoxazole/Trimethoprim [Bactrim Ds Tablet] 1 each PO BID 10 Days #20 tablet 06/15/20 [Rx] cephALEXin [Keflex] 500 mg PO Q8H 10 Days #30 cap 06/15/20 [Rx] Past Medical History - Past Health History Medical/Surgical History: Denies Medical/Surgical History HEENT History: Reports: None Cardiovascular History: Reports: Other (See Below) Other Cardiovascular History: Heart disease when he was a child "my heart doesnt pump the way that it should" Respiratory History: Reports: None Gastrointestinal History: Reports: None Genitourinary History: Reports: None Musculoskeletal History: Reports: None Neurological History: Reports: None Psychiatric History: Reports: None Endocrine/Metabolic History: Reports: None Hematologic History: Reports: Other (See Below) Other Hematologic History: Von Willebrand Immunologic History: Reports: None Oncologic (Cancer) History: Reports: None Dermatologic History: Reports: None - Infectious Disease History Infectious Disease History: Reports: None Other Infectious Disease History: hx of staph - Past Surgical History Head Surgeries/Procedures: Reports: None HEENT Surgical History: Reports: None GI Surgical History: Reports: None Male Surgical History: Reports: None Endocrine Surgical History: Reports: None Neurological Surgical History: Reports: None Oncologic Surgical History: Reports: None Dermatological Surgical History: Reports: None Social & Family History - Family History Family Medical History: Noncontributory - Caffeine Use Caffeine Use: Reports: None Other Caffeine Use: occ ED ROS GENERAL - Review of Systems Review Of Systems: Comprehensive ROS is negative, except as noted in HPI. ED EXAM, SKIN/RASH Exam: See Below (see dictation) Departure - Departure Time of Disposition: 11:21 Disposition: Home, Self-Care 01 Clinical Impression: Cellulitis Qualifiers: Site of cellulitis: extremity Site of cellulitis of extremity: upper extremity Laterality: left Qualified Code(s): L03.114 - Cellulitis of left upper limb - Discharge Information Prescriptions: Sulfamethoxazole/Trimethoprim [Bactrim Ds Tablet] 1 each PO BID 10 Days #20 tablet cephALEXin [Keflex] 500 mg PO Q8H 10 Days #30 cap Referrals: PCP,None [Primary Care Provider] - Forms: ED Department Discharge Additional Instructions: The following information is given to patients seen in the emergency department who are being discharged to home. This information is to outline your options for follow-up care. We provide all patients seen in our emergency department with a follow-up referral. The need for follow-up, as well as the timing and circumstances, are variable depending upon the specifics of your emergency department visit. If you don't have a primary care physician on staff, we will provide you with a referral. We always advise you to contact your personal physician following an emergency department visit to inform them of the circumstance of the visit and for follow-up with them and/or the need for any referrals to a consulting specialist. The emergency department will also refer you to a specialist when appropriate. This referral assures that you have the opportunity for follow-up care with a specialist. All of these measure are taken in an effort to provide you with optimal care, which includes your follow-up. Under all circumstances we always encourage you to contact your private physician who remains a resource for coordinating your care. When calling for follow-up care, please make the office aware that this follow-up is from your recent emergency room visit. If for any reason you are refused follow-up, please contact the [facility] Emergency Department at and asked to speak to the emergency department charge nurse. [facility] [address] [place] [id number] [facility] [address] [place] [id number] 1. Take medication as prescribed. Continue to monitor for signs of spreading infection versus improvement as discussed. 2. Follow-up with your primary care provider as discussed. Return to the ED as needed and as discussed.
[2020-06-15] MEDS ORDERED: Diphtheria,Pertussis(Acell),Tetanus Vaccine 0.5 ML Syringe IM ONE (11:38)
[2020-06-15 11:57] VITALS: BP 115/71; PULSE 100
== END 2020-06-15 11:58 | disposition home or self-care (01) ==
LOC: MW.ED 10:56
DX: L03.114 Cellulitis of left upper limb (principal); Z88.6 Allergy status to analgesic agent; Z23 Encounter for immunization
CPT/HCPCS: 90471; 90715; 99282

== ENCOUNTER 2020-09-05 17:49 | Emergency (ER) | payer SELFPAY ==
--- NOTE | 2020-09-05 18:14 | EDM.PDOC ---
ED HPI GENERAL MEDICAL PROBLEM - General Chief Complaint: General Stated Complaint: RASH Time Seen by Provider: 09/05/20 17:54 Source of Information: Reports: Patient History Limitations: Reports: No Limitations - History of Present Illness INITIAL COMMENTS - FREE TEXT/NARRATIVE: HISTORY AND PHYSICAL: History of present illness: Patient is a 24-year-old male resents to the ED today with concern of penile lesions that have been ongoing for the past 2 days. Patient states that he is sexually active and does not use protection. Patient states that he noticed some lesions on his penis yesterday and states that they were "blisterlike "and small. Patient states initially they were irritated but the irritation has improved today and the blisters are smaller today. Patient states that he "googled "a picture of herpes infection and states that his lesions looked similar to this. Patient denies any prior episodes of this. Patient denies any testicular pain or penile drainage. Denies any other symptoms or concerns. Patient denies fever, chills, chest pain, shortness of breath, or cough. Denies headache, neck stiff ness, change in vision, syncope, or near syncope. Denies nausea, vomiting, abdominal pain, diarrhea, constipation, or dysuria. Has not noted any blood in urine or stool. Patient has been eating and drinking appropriately. Review of systems: As per history of present illness and below otherwise all systems reviewed and negative. Past medical history: As per history of present illness and as reviewed below otherwise noncontributory. Surgical history: As per history of present illness and as reviewed below otherwise noncontributory. Social history: See social history for further information Family history: As per history of present illness and as reviewed below otherwise noncontributory. Physical exam: General: Patient is alert, oriented, and in no acute distress. Patient sitting comfortably on exam table. HEENT: Atraumatic, normocephalic, pupils equal and reactive bilaterally, negative for conjunctival pallor or scleral icterus, mucous membranes moist, TMs normal bilaterally, throat clear, neck supple, nontender, trachea midline. No drooling or trismus noted. No meningeal signs. No hot potato voice noted. Lungs: Clear to auscultation, breath sounds equal bilaterally, chest nontender. Heart: S1S2, regular rate and rhythm without overt murmur Abdomen: Soft, nondistended, nontender. Negative for masses or hepatosplenomegaly. Negative for costovertebral tenderness. Pelvis: Stable nontender. Genitourinary: Mid Level Business Analyst at bedside Rajan Farr MD. No masses, erythema, penile drainage, or testicular pain. There area a few small pinpoint lesions at the superior base of the penile shaft that are painful to palpation without drainage. Rectal: Deferred. Skin: Intact, warm, dry. No lesions or rashes noted. Extremities: Atraumatic, negative for cords or calf pain. Neurovascular unremarkable. Neuro: Awake, alert, oriented. Cranial nerves II through XII unremarkable. Cerebellum unremarkable. Motor and sensory unremarkable throughout. Exam nonfocal. Notes: Symptoms that would prompt return to the ED thoroughly discussed with patient. Discussed importance for refraining from sexual intercourse until lab work and diagnostics from today have resulted. Discussed that if patient does desire full STD screening, he can get this done with his primary care provider or at [facility]. Return precautions thoroughly discussed with patient. Voices understanding and is agreeable to plan of care. Denies any further questions or concerns at this time. Diagnostics: HSV IgG/Viral swab Therapeutics: None Prescription: Valacyclovir Impression: Penile lesions r/o HSV infection Plan: 1. Refrain from sexual intercourse until testing from today has resulted. You will receive a call when these labs return in the next several days. 2. If you desire to additional STD screening, you can get this done with your primary care provider or at the [facility]. 3. Return the ED as needed and as discussed. Take medication as prescribed. Definitive disposition and diagnosis as appropriate pending reevaluation and review of above. - Related Data Allergies Allergy/AdvReac Type Severity Reaction Status Date / Time aspirin Allergy almost Verified 09/05/20 18:16 make him ? Home Meds: Home Meds Sulfamethoxazole/Trimethoprim [Bactrim Ds Tablet] 1 each PO BID 10 Days #20 tablet 06/15/20 [Rx] cephALEXin [Keflex] 500 mg PO Q8H 10 Days #30 cap 06/15/20 [Rx] valACYclovir [Valtrex] 1,000 mg PO BID 7 Days #14 tab 09/05/20 [Rx] Past Medical History - Past Health History Medical/Surgical History: Denies Medical/Surgical History HEENT History: Reports: None Cardiovascular History: Reports: Other (See Below) Other Cardiovascular History: Heart disease when he was a child "my heart doesnt pump the way that it should" Respiratory History: Reports: None Gastrointestinal History: Reports: None Genitourinary History: Reports: None Musculoskeletal History: Reports: None Neurological History: Reports: None Psychiatric History: Reports: None Endocrine/Metabolic History: Reports: None Hematologic History: Reports: Other (See Below) Other Hematologic History: Von Willebrand Immunologic History: Reports: None Oncologic (Cancer) History: Reports: None Dermatologic History: Reports: None - Infectious Disease History Infectious Disease History: Reports: None Other Infectious Disease History: hx of staph - Past Surgical History Head Surgeries/Procedures: Reports: None HEENT Surgical History: Reports: None GI Surgical History: Reports: None Male Surgical History: Reports: None Endocrine Surgical History: Reports: None Neurological Surgical History: Reports: None Oncologic Surgical History: Reports: None Dermatological Surgical History: Reports: None Social & Family History - Family History Family Medical History: No Pertinent Family History - Caffeine Use Caffeine Use: Reports: None Other Caffeine Use: occ ED ROS GENERAL - Review of Systems Review Of Systems: Comprehensive ROS is negative, except as noted in HPI. ED EXAM, GENERAL - Physical Exam Exam: See Below (see dictation) Course - Vital Signs Last Recorded V/S: Last Vital Signs Temp 96.8 F L 09/05/20 18:04 Pulse 118 H 09/05/20 18:04 Resp 16 09/05/20 18:04 BP 135/94 H 09/05/20 18:04 Pulse Ox 98 09/05/20 18:04 Departure - Departure Time of Disposition: 18:13 Disposition: Home, Self-Care 01 Clinical Impression: Penile lesion - Discharge Information Prescriptions: valACYclovir [Valtrex] 1,000 mg PO BID 7 Days #14 tab Referrals: PCP,None [Primary Care Provider] - Forms: ED Department Discharge Additional Instructions: The following information is given to patients seen in the emergency department who are being discharged to home. This information is to outline your options for follow-up care. We provide all patients seen in our emergency department with a follow-up referral. The need for follow-up, as well as the timing and circumstances, are variable depending upon the specifics of your emergency department visit. If you don't have a primary care physician on staff, we will provide you with a referral. We always advise you to contact your personal physician following an emergency department visit to inform them of the circumstance of the visit and for follow-up with them and/or the need for any referrals to a consulting specialist. The emergency department will also refer you to a specialist when appropriate. This referral assures that you have the opportunity for follow-up care with a specialist. All of these measure are taken in an effort to provide you with optimal care, which includes your follow-up. Under all circumstances we always encourage you to contact your private physician who remains a resource for coordinating your care. When calling for follow-up care, please make the office aware that this follow-up is from your recent emergency room visit. If for any reason you are refused follow-up, please contact the [facility] Emergency Department at and asked to speak to the emergency department charge nurse. [facility] [address] [place] [id number] [facility] [address] [place] [id number] [facility] [address] [place] [address] 1. Refrain from sexual intercourse until testing from today has resulted. You will receive a call when these labs return in the next several days. 2. If you desire to additional STD screening, you can get this done with your primary care provider or at the [facility]. 3. Return the ED as needed and as discussed. Take medication as prescribed.
[2020-09-05 18:35] VITALS: BP 135/94; PULSE 118
== END 2020-09-05 19:15 | disposition home or self-care (01) ==
LOC: MW.ED 17:49
DX: L98.9 Disorder of the skin and subcutaneous tissue, unspecified (principal); Z88.8 Allergy status to other drugs, medicaments and biological substances
CPT/HCPCS: 36415; 86695; 86696; 87529; 99283

== ENCOUNTER 2021-03-23 23:57 | Emergency (ER) | payer SELFPAY ==
[2021-03-24 00:36] VITALS: BP 128/78; PULSE 98
[2021-03-24] MEDS ORDERED: Tetracaine HCl/PF 0.5% 4 ML Bottle ONE (00:39)
[2021-03-24] MEDS ORDERED: Tetracaine HCl/PF 0.5% 4 ML Bottle EYELF ONE (00:39)
[2021-03-24] MEDS ORDERED: Ketorolac 15 MG/ML SDV IM ONE (01:30)
[2021-03-24] MEDS ORDERED: Erythromycin Base 0.5% Ophth Oint 1 GM Tube EYELF STA (01:45)
--- NOTE | 2021-03-24 02:28 | EDM.PDOC ---
ED HPI GENERAL MEDICAL PROBLEM - General Chief Complaint: ENT Problem Stated Complaint: LFT EYE Time Seen by Provider: 03/24/21 00:35 - History of Present Illness INITIAL COMMENTS - FREE TEXT/NARRATIVE: CHIEF COMPLAINT(S): "Something is in my eye." HISTORY OF PRESENT ILLNESS: This is a 25-year-old man without any significant past medical history who comes to the emergency department the chief complaint of "something is in my eye." The patient states that prior to arrival he was pulling a Shop rag out of his bag and after that he noticed that his left eye with tearing, burning and he thinks that something is in his eye. He states that it is not metal or wood. He does not know what is causing the pain. He rates his pain as 10 out of 10. There is no radiation of this pain. The patient denies any pain with extraocular movements. He states that the pain is isolated to his left eye. He denies any pain in his right eye. He states that there is some blurry vision and some light sensitivity. He denies any trauma to the eye otherwise. He has not yet tried anything for pain. Nothing seems to relieve the pain. He cannot describe any aggravating factors. Denies any contact use. Denies any history of IV drug use. REVIEW OF SYSTEMS: Constitutional: Denies fever, chills. Eyes: Positive for left eye redness, pain Ears, Nose, Mouth, & Throat: Denies earache Cardiovascular: Denies chest pain Respiratory: Denies shortness of breath Gastrointestinal: Denies Nausea, vomiting, diarrhea, hematochezia. Genitourinary: Denies hematuria Skin:Denies a rash MSK: Denies joint pain Neurological: Positive for blurred vision. Denies headache, numbness, tingling, weakness Psychiatric: Denies depression PAST MEDICAL HISTORY: As per history of present illness and as reviewed below otherwise noncontributory. SURGICAL HISTORY: As per history of present illness and as reviewed below otherwise noncontributory. SOCIAL HISTORY: As per history of present illness and as reviewed below otherwise noncontributory. FAMILY HISTORY: As per history of present illness and as reviewed below otherwise noncontributory. EXAMINATION OF ORGAN SYSTEMS/BODY AREAS: Constitutional: Blood pressure was 128/70, heart rate 98, respiratory rate 17 with an oxygen saturation 9 7% on room air. Temperature 36.6 General: Young man who is in a moderate amount of distress secondary to pain. Psychiatric: Appropriate mood and affect. Eyes: Visual acuity was performed by RN. It was normal documented in nursing notes. The left eye has some conjunctival erythema. His left eye is tearing. extraocular movements are intact without any pain. Pupils were 3 mm and reactive bilaterally. No nystagmus noted. There is no hyphema or hypopyon. Visual harry are intact. The patient does have light sensitivity in that left eye. With the lid the everted there was no obvious foreign body. ENMT: Moist mucous membranes. No pharyngeal erythema Cardiovascular: Regular, rate, and rhythm. No gallops, murmurs, or rubs. Bi lateral upper extremity pulses symmetric and intact. No peripheral edema. No JVD. Respiratory: Lungs clear to auscultation bilaterally. No wheezes, rales, or rhonchi. Skin: No lesions or abrasions. Neurological: Alert, GCS 15 MEDICAL DECISION MAKING AND COURSE IN THE ED WITH INTERPRETATION/REVIEW OF DIAGNOSTIC STUDIES: This is a 25-year-old man without any significant past medical history who comes to the emergency department with a chief complaint of left eye pain and concern for foreign body. At this time that patient has intact extraocular movements with some conjunctival redness of the left eye with tearing without any signs of entrapment and no pain with extraocular movements. I do suspect possible abrasion secondary to some type of foreign body versus chemical irritation of the eye given that it was a shop rag. At this time I did instruct the patient to go to the eyewash station and rinse out his eyes for 15 minutes. He did not rinse them out all prior to arrival. After the patient rinsed his eye out. I did provide the patient with 1 drop of tetracaine to his left eye. He reported improvement of his pain to 0 out of 10. Using fluorescein there does appear to be a left upper thigh corneal abrasion otherwise there are some conjunctival abrasions. There are no abrasions located over the pupil. After evaluation I did discuss with patient that I did provide him with erythromycin ointment if any he needs to follow-up with ophthalmology tomorrow. I stressed the importance of this. He was amenable to discharge and no further questions. Was given strict return precautions DISPOSITION: The patient was discharged home in stable condition. The patient will follow up with ophthalmology tomorrow CONDITION: Fair PROCEDURES: None FINAL IMPRESSION(S)/DIAGNOSES: 1. Acute conjunctivitis of the left eye likely secondary to chemical versus foreign body. 2. Acute left eye corneal abrasion Rajan Farr M.D. Left Eye Pain Score (Numeric/FACES): 10 - Related Data Allergies Allergy/AdvReac Type Severity Reaction Status Date / Time aspirin Allergy almost Verified 03/24/21 00:23 make him ? Home Meds: Home Meds Sulfamethoxazole/Trimethoprim [Bactrim Ds Tablet] 1 each PO BID 10 Days #20 tablet 06/15/20 [Rx] cephALEXin [Keflex] 500 mg PO Q8H 10 Days #30 cap 06/15/20 [Rx] valACYclovir [Valtrex] 1,000 mg PO BID 7 Days #14 tab 09/05/20 [Rx] Erythromycin Base [Erythromycin 0.5% Ophth Oint] 1 applic EYELF QID 7 Days #1 tube 03/24/21 [Rx] Past Medical History - Past Health History Medical/Surgical History: Denies Medical/Surgical History HEENT History: Reports: None Cardiovascular History: Reports: Other (See Below) Other Cardiovascular History: Heart disease when he was a child "my heart doesnt pump the way that it should" Respiratory History: Reports: None Gastrointestinal History: Reports: None Genitourinary History: Reports: None Musculoskeletal History: Reports: None Neurological History: Reports: None Psychiatric History: Reports: None Endocrine/Metabolic History: Reports: None Hematologic History: Reports: Other (See Below) Other Hematologic History: Von Willebrand Immunologic History: Reports: None Oncologic (Cancer) History: Reports: None Dermatologic History: Reports: None - Infectious Disease History Infectious Disease History: Reports: None Other Infectious Disease History: hx of staph - Past Surgical History Head Surgeries/Procedures: Reports: None HEENT Surgical History: Reports: None Other HEENT Surgeries/Procedures: Root canal GI Surgical History: Reports: None Male Surgical History: Reports: None Endocrine Surgical History: Reports: None Neurological Surgical History: Reports: None Oncologic Surgical History: Reports: None Dermatological Surgical History: Reports: None Social & Family History - Family History Family Medical History: No Pertinent Family History - Caffeine Use Caffeine Use: Reports: Energy Drinks Other Caffeine Use: occ - Recreational Drug Use Recreational Drug Use: No ED ROS GENERAL - Review of Systems Review Of Systems: See Below ED EXAM, GENERAL - Physical Exam Exam: See Below Course - Vital Signs Last Recorded V/S: Last Vital Signs Temp 36.6 C 03/24/21 00:23 Pulse 98 03/24/21 00:23 Resp 17 03/24/21 00:23 BP 128/78 03/24/21 00:23 Pulse Ox 97 03/24/21 00:23 - Orders/Labs/Meds Meds: Medications Discontinued Medications Generic Name Dose Route Start Last Admin Trade Name Malena PRN Reason Stop Dose Admin Erythromycin 1 gm 03/24/21 01:45 03/24/21 02:16 Erythromycin Base 0.5% Ophth Oint 1 Gm Tube EYELF 03/24/21 01:46 1 gm ONETIME STA Administration Ketorolac Tromethamine 15 mg 03/24/21 01:30 03/24/21 01:40 Ketorolac 15 Mg/Ml Sdv IM 03/24/21 01:31 15 mg ONETIME ONE Administration Tetracaine HCl 1 ml 03/24/21 00:39 03/24/21 00:41 Tetracaine Hcl/Pf 0.5% 4 Ml Bottle EYELF 03/24/21 00:40 1 ml ASDIRECTED ONE Administration Tetracaine HCl Confirm 03/24/21 00:39 03/24/21 01:41 Tetracaine Hcl/Pf 0.5% 4 Ml Bottle Administered 03/24/21 00:40 4 ml Dose Administration 4 ml .ROUTE .STK-MED ONE Departure - Departure Time of Disposition: 02:26 Disposition: Home, Self-Care 01 Condition: Fair Clinical Impression: Corneal abrasion, left - Discharge Information *PRESCRIPTION DRUG MONITORING PROGRAM REVIEWED*: No *COPY OF PRESCRIPTION DRUG MONITORING REPORT IN PATIENT IGOR: No Prescriptions: Erythromycin Base [Erythromycin 0.5% Ophth Oint] 1 applic EYELF QID 7 Days #1 tube Instructions: Corneal Abrasion Referrals: PCP,None [Primary Care Provider] - Forms: ED Department Discharge Additional Instructions: You evaluate today on an emergent basis. At this time there was no evidence of any foreign body. We did perform an examination and there was no evidence of any rupture of your eyeball. There did appear to be a corneal abrasion on the left upper eye. For this I recommend that you use erythromycin as prescribed. In addition I did provide you with tetracaine drops which can be used every 30 minutes however this should not be used more than 24 hours. I recommend that you take this bottle with you to ophthalmology tomorrow. I recommend that you call them as soon as you can in the morning and you need to see them tomorrow. If you have any worsening pain, vision changes, fever or you are concerned I want you to return to the emergency department. Opthalmology Dr. Amando Malik 8am-12pm (today) [phone] The patient is informed of any results of their evaluation and diagnostic workup and all questions are answered. They are given discharge instructions and return precautions. The patient is stable for discharge. The patient states they understand and agree with the plan and that they will return if their symptoms get worse or if they have any new concerns. The following information is given to patients seen in the emergency department who are being discharged to home. This information is to outline your options for follow-up care. We provide all patients seen in our emergency department with a follow-up referral. The need for follow-up, as well as the timing and circumstances, are variable d epending upon the specifics of your emergency department visit. If you don't have a primary care physician on staff, we will provide you with a referral. We always advise you to contact your personal physician following an emergency department visit to inform them of the circumstance of the visit and for follow-up with them and/or the need for any referrals to a consulting specialist. The emergency department will also refer you to a specialist when appropriate. This referral assures that you have the opportunity for follow-up care with a specialist. All of these measure are taken in an effort to provide you with optimal care, which includes your follow-up. Under all circumstances we always encourage you to contact your private physician who remains a resource for coordinating your care. When calling for follow-up care, please make the office aware that this follow-up is from your recent emergency room visit. If for any reason you are refused follow-up, please contact the [facility] Emergency Department at and asked to speak to the emergency department charge nurse. Sepsis Event Note (ED) - Evaluation Sepsis Screening Result: No Definite Risk
== END 2021-03-24 02:35 | disposition home or self-care (01) ==
LOC: MW.ED 03-24 00:01
DX: S05.02XA Injury of conjunctiva and corneal abrasion without foreign body, left eye, initial encounter (principal); H10.32 Unspecified acute conjunctivitis, left eye; Z88.8 Allergy status to other drugs, medicaments and biological substances; W22.8XXA Striking against or struck by other objects, initial encounter
CPT/HCPCS: 96372; 99283; A9270; J1885

== ENCOUNTER 2021-05-29 18:57 | Emergency (ER) | payer SELFPAY ==
[2021-05-29 19:10] VITALS: BP 134/80
--- NOTE | 2021-05-29 20:33 | EDM.PDOC ---
ED HPI GENERAL MEDICAL PROBLEM - General Chief Complaint: Laceration Stated Complaint: RT ELBOW LACERATION Time Seen by Provider: 05/29/21 19:39 Source of Information: Reports: Patient History Limitations: Reports: No Limitations - History of Present Illness INITIAL COMMENTS - FREE TEXT/NARRATIVE: HISTORY AND PHYSICAL: History of present illness: Patient is a 25-year-old male, with history of von Willebrand's disease, who presents emergency room today with concern of right forearm laceration. Patient states that he was helping his mom get a garage sale together and states that there was a broken piece of glass that he split his arm over and did not realize was there. Patient states that he knows no glass got into the wound as it was a single piece of glass and not multiple shards. Patient states that he did have his tetanus updated 3 to 4 years ago when he had to go to senior care. Patient denies any other symptoms or concerns. Patient denies fever, chills, chest pain, shortness of breath, or cough. Denies headache, neck stiff ness, change in vision, syncope, or near syncope. Denies nausea, vomiting, abdominal pain, diarrhea, constipation, or dysuria. Has not no kari any blood in urine or stool. Patient has been eating and drinking appropriately. Review of systems: As per history of present illness and below otherwise all systems reviewed and negative. Past medical history: As per history of present illness and as reviewed below otherwise noncontributory. Surgical history: As per history of present illness and as reviewed below otherwise noncontribut ory. Social history: See social history for further information Family history: As per history of present illness and as reviewed below otherwise noncontributory. Physical exam: General: Patient is alert, oriented, and in no acute distress. Patient sitting comfortably on exam table. Vitals stable and reviewed by me. HEENT: Atraumatic, normocephalic, pupils equal and reactive bilaterally, neg ative for conjunctival pallor or scleral icterus, mucous membranes moist, TMs normal bilaterally, throat clear, neck supple, nontender, trachea midline. No drooling or trismus noted. No meningeal signs. No hot potato voice noted. Lungs: Clear to auscultation, breath sounds equal bilaterally, chest nontender. Heart: S1S2, regular rate and rhythm without overt murmur Abdomen: Soft, nondistended, nontender. Negative for masses or hepatosplenomegaly. Negative for costovertebral tenderness. Pelvis: Stable nontender. Genitourinary: Deferred. Rectal: Deferred. Skin: Intact, warm, dry. No lesions or rashes noted. Extremities: There is a 5 cm laceration that does go to the depth of the muscle but does not involve the muscle of the right posterior forearm. There is a mild trickling of bleeding noted from the laceration. Patient has full range of motion of the complete right upper extremity without pain or difficulty. Radial pulse grossly intact with capillary refill less than 2 seconds. Otherwise, atraumatic, negative for cords or calf pain. Neurovascular unremarkable. Neuro: Awake, alert, oriented. Cranial nerves II through XII unremarkable. Cerebellum unremarkable. Motor and sensory unremarkable throughout. Exam nonfocal. Notes: Post suture shows that all bleeding has stopped of the laceration site. Signs and symptoms that were prompt return to the ED thoroughly discussed with patient. Discussed importance for follow-up with a primary care provider. Voices understanding and is agreeable to plan of care. Denies any further questions or concerns at this time. Diagnostics: I did offer a forearm x-ray rule out foreign body, however, patient declines. All risk versus benefits discussed with patient and expresses understanding. Therapeutics: Sutures, lidocaine, sterile dressing placed by nursing staff Prescription: None Impression: Forearm laceration, right Plan: 1. Keep the area clean and dry. Continue to monitor for signs of infection as discussed. Sutures to be removed in 7-10 days. 2. Tylenol and/or ibuprofen as directed and as needed for pain management and discomfort. 3. Please follow-up with your primary care provider as discussed. Return to the ED as needed and as discussed. Definitive disposition and diagnosis as appropriate pending reevaluation and review of above. Right Arm Pain Score (Numeric/FACES): 5 - Related Data Allergies Allergy/AdvReac Type Severity Reaction Status Date / Time aspirin Allergy almost Verified 03/24/21 00:23 make him ? Home Meds: Home Meds Sulfamethoxazole/Trimethoprim [Bactrim Ds Tablet] 1 each PO BID 10 Days #20 tablet 06/15/20 [Rx] cephALEXin [Keflex] 500 mg PO Q8H 10 Days #30 cap 06/15/20 [Rx] valACYclovir [Valtrex] 1,000 mg PO BID 7 Days #14 tab 12/14/20 [Rx] Erythromycin Base [Erythromycin 0.5% Ophth Oint] 1 applic EYELF QID 7 Days #1 tube 03/24/21 [Rx] Past Medical History - Past Health History Medical/Surgical History: Denies Medical/Surgical History HEENT History: Reports: None Cardiovascular History: Reports: Other (See Below) Other Cardiovascular History: Heart disease when he was a child "my heart doesnt pump the way that it should" Respiratory History: Reports: None Gastrointestinal History: Reports: None Genitourinary History: Reports: None Musculoskeletal History: Reports: None Neurological History: Reports: None Psychiatric History: Reports: None Endocrine/Metabolic History: Reports: None Hematologic History: Reports: Other (See Below) Other Hematologic History: Von Willebrand Immunologic History: Reports: None Oncologic (Cancer) History: Reports: None Dermatologic History: Reports: None - Infectious Disease History Infectious Disease History: Reports: None Other Infectious Disease History: hx of staph - Past Surgical History Head Surgeries/Procedures: Reports: None HEENT Surgical History: Reports: None Other HEENT Surgeries/Procedures: Root canal GI Surgical History: Reports: None Male Surgical History: Reports: None Endocrine Surgical History: Reports: None Neurological Surgical History: Reports: None Oncologic Surgical History: Reports: None Dermatological Surgical History: Reports: None Social & Family History - Family History Family Medical History: No Pertinent Family History - Tobacco Use Tobacco Use Status *Q: Never Tobacco User - Caffeine Use Caffeine Use: Reports: Coffee Other Caffeine Use: occ - Recreational Drug Use Recreational Drug Use: No ED ROS GENERAL - Review of Systems Review Of Systems: Comprehensive ROS is negative, except as noted in HPI. ED EXAM, SKIN/RASH Exam: See Below (See dictation) ED SKIN PROCEDURES - Laceration/Wound Repair Right Posterior Arm Appearance: Subcutaneous, Muscle, Irregular, Clean Distal NVT: Neuro & Vascular Intact, No Tendon Injury Anesthetic Type: Local Local Anesthesia - Lidocaine (Xylocaine): 1% Plain Local Anesthetic Volume: Other (10cc) Skin Prep: Chlorhexidine (Hibiciens), Saline Saline Irrigation (cc's): 250 Exploration/Debridement/Repair: Wound Explored, In a Bloodless Field, Explored to Base, No Foreign Material Found Closed with: Sutures Lac/Wound length In cm: 5 Suture Size: 4-0 # of Sutures: 12 Suture Type: Silk, Interrupted Drain Placement: No Sterile Dressing Applied: Nurse Tetanus Status Addressed: Yes (Up-to-date) Complications: No Course - Vital Signs Last Recorded V/S: Last Vital Signs Temp 98.9 F 05/29/21 21:13 Pulse 120 H 05/29/21 21:13 Resp 18 05/29/21 21:13 BP 134/80 05/29/21 19:06 Pulse Ox 99 05/29/21 21:13 - Orders/Labs/Meds Meds: Medications Discontinued Medications Generic Name Dose Route Start Last Admin Trade Name Malena PRN Reason Stop Dose Admin Lidocaine HCl 10 ml 05/29/21 19:54 05/29/21 19:59 Lidocaine 1% 5 Ml Sdv INJECT 05/29/21 19:55 10 ml ONETIME ONE Administration Departure - Departure Time of Disposition: 20:32 Disposition: Home, Self-Care 01 Clinical Impression: Forearm laceration Qualifiers: Encounter type: initial encounter Laterality: right Qualified Code(s): S51.811A - Laceration without foreign body of right forearm, initial encounter - Discharge Information Instructions: Laceration Care, Adult, [id number] Referrals: PCP,None [Primary Care Provider] - Forms: ED Department Discharge Additional Instructions: The following information is given to patients seen in the emergency department who are being discharged to home. This information is to outline your options for follow-up care. We provide all patients seen in our emergency department with a follow-up referral. The need for follow-up, as well as the timing and circumstances, are variable depending upon the specifics of your emergency department visit. If you don't have a primary care physician on staff, we will provide you with a referral. We always advise you to contact your personal physician following an emergency department visit to inform them of the circumstance of the visit and for follow-up with them and/or the need for any referrals to a consulting specialist. The emergency department will also refer you to a specialist when appropriate. This referral assures that you have the opportunity for follow-up care with a s pecialist. All of these measure are taken in an effort to provide you with optimal care, which includes your follow-up. Under all circumstances we always encourage you to contact your private physici an who remains a resource for coordinating your care. When calling for follow-up care, please make the office aware that this follow-up is from your recent emergency room visit. If for any reason you are refused follow-up, please contact the [facility] at and asked to speak to the emergency department charge nurse. [facility] [address] [place] [address] [facility] [address] [place] [id number] 1. Keep the area clean and dry. Continue to monitor for signs of infection as discussed. Sutures to be removed in 7-10 days. 2. Tylenol as directed and as needed for pain management and discomfort. 3. Please follow-up with your primary care provider as discussed. Return to the ED as needed and as discussed. Sepsis Event Note (ED) - Focused Exam Vital Signs: Vital Signs Temp Pulse Resp BP Pulse Ox 05/29/21 21:13 98.9 F 120 H 18 99 05/29/21 19:06 97.6 F 107 H 18 134/80 98
[2021-05-29 21:13] VITALS: PULSE 120
== END 2021-05-29 21:15 | disposition home or self-care (01) ==
LOC: MW.ED 18:57
DX: S51.811A Laceration without foreign body of right forearm, initial encounter (principal); Z88.8 Allergy status to other drugs, medicaments and biological substances; W25.XXXA Contact with sharp glass, initial encounter
CPT/HCPCS: 12002; 99282-25

== ENCOUNTER 2025-02-02 22:08 | Emergency (ER) | payer OTHER ==
[2025-02-02] MEDS ORDERED: Sodium Chloride 0.9% 2.5 ML Syringe FLUSH PRN (22:31)
[2025-02-02] MEDS ORDERED: Sodium Chloride 0.9% 20 ML SDV IV PRN (22:31)
[2025-02-02] MEDS ORDERED: Sodium Chloride 0.9% 10 ML Syringe FLUSH PRN (22:31)
[2025-02-02] MEDS: Acetaminophen 325 MG Tab PO ONE (22:55)
[2025-02-02 23:05] LABS: BASOPHILS ABSOLUTE AUTO 0.04 K/uL (0.00-0.20); BASOPHILS PERCENT AUTO 0.6 % (0.0-1.0); EOSINOPHILS ABSOLUTE AUTO 0.13 K/uL (0.00-0.45); HEMATOCRIT 41.4 % (42.0-52.0); HEMOGLOBIN 14.7 g/dL (14.0-18.0); IMMATURE GRAN ABSOLUTE AUTO 0.02 K/uL (0.00-0.05); IMMATURE GRAN PERCENT AUTO 0.3 % (0.0-0.4); LYMPHOCYTES ABSOLUTE AUTO 2.53 K/uL (1.00-4.80); LYMPHOCYTES PERCENT AUTO 39.7 % (24.0-44.0); MEAN CORPUSCULAR HEMOGLOBIN 29.4 pg (28.0-32.0); MEAN CORPUSCULAR HGB CONC 35.5 g/dL (32.0-36.0); MEAN CORPUSCULAR VOLUME 82.8 fL (83.0-99.0); MEAN PLATELET VOLUME 8.9 fL (9.4-12.4); MONOCYTES ABSOLUTE AUTO 0.42 K/uL (0.00-0.80); MONOCYTES PERCENT AUTO 6.6 % (0.0-8.0); NEUTROPHILS ABSOLUTE AUTO 3.24 K/uL (1.80-7.70); NEUTROPHILS PERCENT AUTO 50.8 % (41.0-71.0); PLATELET COUNT,PLT 265 K/uL (150-400); WHITE BLOOD CELL COUNT,WBC 6.38 K/uL (3.9-11.3)
[2025-02-02 23:47] LABS: A/G RATIO 1.2 (0.9-1.6); BILIRUBIN TOTAL 0.2 mg/dL (0.2-1.0); CALCIUM 9.1 mg/dL (8.5-10.1); CARBON DIOXIDE,CO2 25.5 mmol/L (21.0-32.0); EST CRCL DRUG DOSING (CG) 112.54 mL/min; POTASSIUM,K 3.6 mmol/L (3.5-5.1); PROTEIN TOTAL,TP 7.4 g/dL (6.4-8.2)
[2025-02-03] MEDS ORDERED: Colchicine 0.6 MG Tab PO ONE (01:20)
[2025-02-03 01:35] VITALS: BP 111/67; PULSE 63
== END 2025-02-03 01:35 | disposition home or self-care (01) ==
LOC: MW.ED 22:08
DX: I31.9 Disease of pericardium, unspecified (principal); Z79.82 Long term (current) use of aspirin
CPT/HCPCS: 36415; 71045; 80053; 83690; 84484; 85025; 85379; 93005; 99285; A9270; 93010; 99284

== ENCOUNTER 2025-02-03 13:17 | Emergency (ER) | payer OTHER ==
[2025-02-03 14:49] VITALS: BP 135/79; PULSE 80
== END 2025-02-03 14:51 ==
LOC: MW.ED 13:17
DX: M94.0 Chondrocostal junction syndrome [Tietze] (principal); Z75.3 Unavailability and inaccessibility of health-care facilities; Z88.8 Allergy status to other drugs, medicaments and biological substances
CPT/HCPCS: 71045; 93005; 96372; 99285; J1100; 99282